=== PATIENT | female | born 1980 | race Caucasian/White ===

== ENCOUNTER 2017-02-26 16:11 | Emergency (ER) | payer OTHER ==
[2017-02-26 16:19] VITALS: RESP 18
[2017-02-26] MEDS ORDERED: HALOPERIDOL LACT 5 MG/ML INJ IVP ONE (17:09)
[2017-02-26] MEDS ORDERED: NS 1,000 ML IV ONE (17:09)
[2017-02-26] MEDS ORDERED: KETOROLAC 15 MG/1 ML SDV IVP ONE (17:09)
[2017-02-26] MEDS ORDERED: DEXAMETHASONE 10 MG/ML VIAL IVP ONE (17:10)
--- NOTE | 2017-02-26 17:11 | UCPHY ---
H & P Patient Type: New Chief Complaint Nursing Narrative: migraine GLEASON with nausea and photophobia since 11am Time Seen by Provider: 02/26/17 17:05 HPI/ROS: Chief Complaint: Migraine headache HPI: 36-year-old woman with history migraine headache started having headache this morning at 11 o'clock. She has vomited once. She has photophobia. Pain is about an 8/10. It is typical for her usual migraine headaches. No fevers or chills. No neck stiffness. No numbness or tingling. She was unable to take her usual control medication she has run out. She recently moved here to from [place] and does not have a local primary care physician at. ROS: 10 point Review of Systems is negative except as noted in the HPI. PMH: Migraine headaches Social History: No smoking, no alcohol, no recreational drug use Family History: non-contributory Physical Exam: Gen: Awake, Alert, No Distress HEENT: Nose: no rhinorrhea Eyes: PERRLA, EOMI Mouth: Moist mucosa Neck: Supple, no JVD Chest: nontender, lungs clear to auscultation Heart: S1, S2 normal, no murmur Abd: Soft, non-tender, no guarding Back: no CVA tenderness, no midline tenderness Ext: no edema, non-tender Skin: no rash Neuro: CN II-XII intact, Sensation grossly intact, Strength 5/5 in bilateral upper and lower extremities - Personal History LMP (Females 10-55): 22-28 Days Ago - Medical/Surgical History Other PMH: htn, migraines, depression - Family History Significant Family History: No pertinent family hx - Social History Smoking Status: Former smoker Constitutional: Initial Vital Signs Temperature (C) 37.3 C 02/26/17 16:16 Heart Rate 87 02/26/17 16:16 Respiratory Rate 18 02/26/17 16:16 Blood Pressure 134/96 H 02/26/17 16:16 O2 Sat (%) 95 02/26/17 16:16 O2 Delivery Mode Room Air Allergies/Adverse Reactions: sumatriptan [From Imitrex] Allergy (Verified 02/26/17 16:14) plastic tape Allergy (Uncoded 02/26/17 16:14) Home Medications: Medication Instructions Recorded Lexapro 02/26/17 Losartan Potassium 02/26/17 Montelukast Sodium 02/26/17 Stadol Nasal [place] 02/26/17 Medical Decision Making ED Course/Re-evaluation: Patient is feeling improved. Will discharge with referral for outpatient follow -up. Return to Urgent Care emergency department for any worsening symptoms. - Data Points Medications Given: Discontinued Medications Dexamethasone (Decadron Injection) 10 mg IVP EDNOW ONE Stop: 02/26/17 17:11 Last Admin: 02/26/17 17:35 Dose: 10 mg Diphenhydramine HCl (Benadryl Injection) 50 mg IVP EDNOW ONE Stop: 02/26/17 17:10 Last Admin: 02/26/17 17:35 Dose: 50 mg Haloperidol Lactate (Haldol Injection) 2.5 mg IVP EDNOW ONE Stop: 02/26/17 17:10 Last Admin: 02/26/17 17:35 Dose: 2.5 mg Sodium Chloride (Ns) 1,000 mls @ 0 mls/hr IV ONCE ONE PRN Reason: Wide Open Stop: 02/26/17 17:10 Last Admin: 02/26/17 17:35 Dose: 1,000 mls Ketorolac Tromethamine (Toradol) 15 mg IVP EDNOW ONE Stop: 02/26/17 17:10 Last Admin: 02/26/17 17:35 Dose: 15 mg Departure - Departure Disposition: Home, Routine, Self-Care Clinical Impression: Migraine headache Condition: Good Instructions: Migraine Headache (ED) Additional Instructions: Return to urgent care or emergency depart for worsening headache, fevers, chills , nausea, vomiting, or any other concerns. Referrals: NONE *PRIMARY CARE P,. [Primary Care Provider] - As per Instructions Tri Whaley MD [[facility] [place] Primary Care Provider] - As per Instructions - PQRS PQRS Measurement: NA
[2017-02-26 18:26] VITALS: BP 138/88; PULSE 74; TEMP 98.4; O2SAT 96
== END 2017-02-26 18:22 | disposition home or self-care (01) ==
LOC: CED 16:11
DX: G43.909 Migraine, unspecified, not intractable, without status migrainosus (principal)
CPT/HCPCS: 96361-PO; 96374-PO; 96375-PO; 99204-PO; G0463-PO; J1200; J1885

== ENCOUNTER → 2018-11-14 | Outpatient (CLI) | payer OTHER | LOC: CIMAGING 10:30 | PROVIDERS: ATTEND Podiatrist | DX: M24.872 Other specific joint derangements of left ankle, not elsewhere classified (principal); M77.32 Calcaneal spur, left foot | CPT/HCPCS: 73630-PO ==